=== PATIENT | female | born 1980 | race Caucasian/White ===

== ENCOUNTER 2023-09-07 08:20 | Day surgery (SDC) | payer OTHER ==
[2023-09-07 08:51] LABS: Glucose,Whole Blood 73 mg/dL (70-110)
[2023-09-07] MEDS: SODIUM CHLORIDE 0.9% 1,000 ML IV SCH (08:52)
[2023-09-07 09:04] VITALS: RESP 18; TEMP 97.9
[2023-09-07 11:31] LABS: Glucose,Whole Blood 77 mg/dL (70-110)
[2023-09-07 12:35] VITALS: BP 116/84; PULSE 7
--- NOTE | 2023-09-07 16:37 | P.EPPROC ---
- EP Procedure Note Electrophysiology Procedure Note: Diagnosis Recurrent presyncope Twelve-lead EKG shows sinus rhythm normal MI narrow QRS Ventricular rate 93 beats a minute normal QT interval Tilt table test per protocol Blood pressure 141/84 mmHg, heart rate 90 beats a minute Patient was tilted upright 70 degrees per protocol No significant change in heart rate or blood pressure peak blood pressure 106 bpm Intermittently the patient complained of being dizzy lightheaded Her blood pressure was normal heart rate was 106 beats a minute No evidence for neurocardiogenic syncope No evidence for orthostatic intolerance Impression Normal twelve-lead EKG with resting heart rates in the 90s Normal heart rate and blood pressures. Right tilting Her heart rates ranged from the 90s to low 100s per minute through the tilt At baseline her heart rate while supine was 93 beats a minute No evidence for neurocardiogenic phenomena No evidence for orthostatic intolerance
== END 2023-09-07 12:34 | disposition home or self-care (01) ==
LOC: CATHEP 08:20
PROVIDERS: ATTEND Internal Medicine Clinical Cardiac Electrophysiology
DX: R55 Syncope and collapse (principal); I10 Essential (primary) hypertension; F17.210 Nicotine dependence, cigarettes, uncomplicated; Z82.49 Family history of ischemic heart disease and other diseases of the circulatory system; Z79.899 Other long term (current) drug therapy
CPT/HCPCS: 93660

== ENCOUNTER → 2024-08-24 | Outpatient (CLI) | payer OTHER | END | disposition home or self-care (01) | LOC: LABWHC1 14:42 | PROVIDERS: ATTEND Physician Assistant | DX: D89.40 Mast cell activation, unspecified (principal) | CPT/HCPCS: 36415; 83520 ==